=== PATIENT | female | born 1990 | race Caucasian/White ===

== ENCOUNTER 2020-07-25 04:14 | Inpatient (IN) ==
[2020-07-25] MEDS ORDERED: Lactated Ringers 1000 ml BAG 1,000 ML IV ONE ×2 (04:59→20:39)
[2020-07-25] MEDS ORDERED: Lactated Ringers 1000 ml BAG 1,000 ML IV SCH ×2 (05:00→21:00)
[2020-07-25 06:05] LABS: Urine Benzodiazepine Screen None Detected (None Detect); Urine Cannabinoids Screen None Detected (None Detect); Urine Opiates Screen None Detected (None Detect)
[2020-07-25] MEDS ORDERED: fentaNYL 100 mcg/2 ml 50 MCG/ML VIAL IV SLOW PU ONE (17:32)
[2020-07-25 18:09] LABS: Hematocrit 36 % (35-47); Hemoglobin 12.7 g/dL (12.0-16.0); Mean Corpuscular HGB Conc 36 g/dL (31-36); Mean Corpuscular Hemoglobin 31 pg (27-31); Mean Corpuscular Volume 87 fL (80-97); Mean Platelet Volume 8.8 fL (7.4-10.4); Platelet Count 336 10^3/uL (150-450); Red Blood Count 4.07 10^6 /uL (3.70-4.87); Red Cell Distribution Width 14 % (10-15); White Blood Count 23.2 10^3/uL (3.5-10.8)
[2020-07-25 18:52] LABS: ABS Basophils 0.2 10^3/ul (0-0.2); ABS Lymphocytes 1.1 10^3/ul (1.0-4.8); ABS Monocytes 0.9 10^3/ul (0-0.8); Lymphocyte % 4.9 %
[2020-07-25] MEDS ORDERED: OBEPIDURAL 250 ML EPIDURAL ONE (19:55)
[2020-07-25] MEDS ORDERED: Lactated Ringers 1000 ml BAG 500 ML IV PRN ×2 (20:39)
[2020-07-25] MEDS ORDERED: EPHEDrine (Pressors) 50 MG/ML VIAL IV PUSH PRN ×2 (20:39)
[2020-07-25] MEDS ORDERED: Phenylephrine 40 mcg/mL 10mL (400mcg) SYRINGE IV PUSH PRN ×2 (20:39)
[2020-07-25] MEDS ORDERED: Sodium Citrate/Citric Acid LIQ 15 ML UDC PO PRN (20:39)
[2020-07-25] MEDS ORDERED: OBEPIDURAL 250 ML EPIDURAL SCH (21:00)
[2020-07-26] MEDS ORDERED: Oxytocin in LR 20 UNITS/1,000 ML BAG IVPB ONE (00:15)
[2020-07-26] MEDS ORDERED: Lactated Ringers 1000 ml BAG 1,000 ML IV SCH (02:00)
[2020-07-26] MEDS ORDERED: Oxytocin in LR 20 UNITS/1,000 ML BAG IVPB SCH (02:00)
[2020-07-26] MEDS: Dibucaine 1% OINT 28.35 GM TUBE PR PRN (03:03)
[2020-07-26] MEDS: Witch Hazel PAD JAR TOPICAL PRN (03:03)
[2020-07-26] MEDS ORDERED: Ammonia Inhalant 1 EA AMP ONE (03:36)
[2020-07-26] MEDS ORDERED: Lidocaine 1% VIAL 10 MG/ML VIAL ONE (08:44)
[2020-07-26] MEDS: Enoxaparin 40 MG/0.4 ML SYR SUBCUT SCH (09:01)
[2020-07-27 08:16] LABS: ABS Eosinophils 0.2 10^3/ul (0-0.6); ABS Lymphocytes 1.9 10^3/ul (1.0-4.8); ABS Monocytes 0.5 10^3/ul (0-0.8); ABS Neutrophils 7.7 10^3/ul (1.5-7.7); Eosinophil % 2.3 %; Hematocrit 30 % (35-47); Hemoglobin 10.2 g/dL (12.0-16.0); Lymphocyte % 18.5 %; Mean Corpuscular HGB Conc 35 g/dL (31-36); Mean Corpuscular Hemoglobin 31 pg (27-31); Mean Corpuscular Volume 90 fL (80-97); Platelet Count 196 10^3/uL (150-450); Red Blood Count 3.26 10^6 /uL (3.70-4.87); Red Cell Distribution Width 14 % (10-15); White Blood Count 10.4 10^3/uL (3.5-10.8)
[2020-07-27] MEDS: Enoxaparin 40 MG/0.4 ML SYR SUBCUT SCH (10:00)
[2020-07-28 08:19] VITALS: BP 104/64
[2020-07-28] MEDS: Dibucaine 1% OINT 28.35 GM TUBE PR PRN (10:01)
[2020-07-28] MEDS: Witch Hazel PAD JAR TOPICAL PRN (10:01)
== END 2020-07-28 14:05 | disposition home or self-care (01) | DRG 560 ==
LOC: MCHOBOUT 04:14 → MCHOB 04:59
PROVIDERS: ADMIT Advanced Practice Midwife; ATTEND Midwife

== ENCOUNTER 2024-06-16 16:27 | Inpatient (IN) ==
[2024-06-16] MEDS ORDERED: Lidocaine 1% VIAL 10 MG/ML 30 ML VIAL INJ PRN (17:13)
[2024-06-16 17:39] LABS: ABS Basophils 0.1 10^3/uL (0.0-0.1); ABS Lymphocytes 1.3 10^3/uL (1.0-4.8); ABS Monocytes 0.4 10^3/uL (0.0-0.9); ABS Neutrophils 9.2 10^3/uL (1.5-7.6); Eosinophil % 0.4 %; Hematocrit 34.6 % (35-45); Hemoglobin 12.2 g/dL (11.5-14.3); Lymphocyte % 11.8 %; Mean Corpuscular Hemoglobin 30.7 pg (27-33); Mean Corpuscular Hgb Conc 35.3 g/dL (31-36); Mean Platelet Volume 8.4 fL (7.5-11.2); Platelet Count 319 10^3/uL (150-450); Red Blood Count 3.97 10^6/uL (3.63-4.92); Red Cell Distribution Width 14.6 % (12-17)
[2024-06-16] MEDS: Lactated Ringers 1000 ml BAG 1,000 ML IV ONE (17:40)
[2024-06-16] MEDS: OBEPIDURAL (200 ML) 200 ML EPIDURAL ONE (18:10)
[2024-06-16] MEDS ORDERED: Lactated Ringers 1000 ml BAG 1,000 ML IV ONE (18:21)
[2024-06-16] MEDS ORDERED: Sodium Citrate/Citric Acid LIQ 15 ML UDC PO PRN (18:21)
[2024-06-16] MEDS ORDERED: Phenylephrine 40 mcg/mL 10mL (400mcg) SYRINGE IV PUSH PRN ×2 (18:21)
[2024-06-16] MEDS: Lactated Ringers 1000 ml BAG 1,000 ML IV SCH (18:23)
[2024-06-16 19:39] LABS: Urine Benzodiazepine Screen None Detected (None Detect); Urine Cannabinoids Screen None Detected (None Detect); Urine Opiates Screen None Detected (None Detect)
[2024-06-16 20:02] LABS: Urine Bacteria Absent /HPF (Absent); Urine Red Blood Cell 3+(>10/hpf) /HPF (0-Trace); Urine White Blood Cell Trace(0-5/hpf) /HPF (0-Trace)
[2024-06-16 20:08] LABS: Urine Appearance Cloudy; Urine Color Light-Yellow; Urine Urobilinogen Negative (Negative)
[2024-06-16 20:09] LABS: Urine Bilirubin Negative (Negative); Urine Blood 3+ (Negative); Urine Glucose Negative (Negative); Urine Ketones Negative (Negative); Urine Nitrite Negative (Negative); Urine Protein 1+ (>=30 mg/dL) (Negative); Urine Specific Gravity > 1.030 (1.002-1.030)
[2024-06-16] MEDS ORDERED: Glycerin ADULT 2.4 gm SUPP PR PRN (23:47)
[2024-06-17] MEDS: Witch Hazel PAD JAR TOPICAL PRN
[2024-06-17] MEDS: Dibucaine 1% OINT 28.35 GM TUBE PR PRN
[2024-06-17] MEDS: Lactated Ringers 1000 ml BAG 1,000 ML IV SCH (03:43)
[2024-06-17] MEDS: OBEPIDURAL (200 ML) 200 ML EPIDURAL SCH (03:44)
[2024-06-17] MEDS: Buffered Lidocaine 1% SYRIN 1 ml INTRADERM ONE (03:45)
[2024-06-17] MEDS: Lidocaine 1.5% EPI 1:200,000 30 ML SDV ONE (03:45)
[2024-06-17 06:59] LABS: ABS Eosinophils 0.1 10^3/uL (0.0-0.5); ABS Lymphocytes 1.6 10^3/uL (1.0-4.8); ABS Monocytes 0.6 10^3/uL (0.0-0.9); ABS Neutrophils 8.7 10^3/uL (1.5-7.6); ABS Nucleated RBC 0.01 10^3/ul; Eosinophil % 0.5 %; Hematocrit 29.2 % (35-45); Hemoglobin 10.4 g/dL (11.5-14.3); Lymphocyte % 14.8 %; Mean Corpuscular Hemoglobin 31.2 pg (27-33); Mean Corpuscular Hgb Conc 35.8 g/dL (31-36); Mean Corpuscular Volume 86.9 fL (80-97); Mean Platelet Volume 7.8 fL (7.5-11.2); Platelet Count 239 10^3/uL (150-450); Red Blood Count 3.35 10^6/uL (3.63-4.92); Red Cell Distribution Width 14.6 % (12-17)
[2024-06-18 08:20] VITALS: BP 98/61
== END 2024-06-18 14:26 | disposition home or self-care (01) | DRG 560 ==
LOC: MCHOBOUT 16:27 → MCHOB 16:42